=== PATIENT | female | born 1960 | race Caucasian/White ===

== ENCOUNTER 2021-02-09 06:21 | Inpatient (IN) | payer BC ==
[~2021-02-09] VITALS: Ht 162.6 cm; Wt 75.0 kg
[2021-02-09] VITALS (25 sets, daily range): BP systolic 97–122; BP diastolic 56–78
[2021-02-09] MEDS ORDERED: morphine 4 MG/ML inj SYRINge IV ONE ×2 (06:40→10:20)
[2021-02-09] MEDS ORDERED: ondansetron/PF 4mg/2ml inj IV ONE (06:40)
[2021-02-09] MEDS ORDERED: normal saline 1000ml 1,000 ML IV ONE (06:40)
[2021-02-09 07:27] LABS: BASOPHILS % (AUTO) 0.2 % (0-1); EOSINOPHILS % (AUTO) 0.1 % (0-6); HEMATOCRIT 41.9 % (35.0-45.0); LYMPHOCYTES # (AUTO) 0.5 X10'3 (1.1-4.8); LYMPHOCYTES % (AUTO) 6.2 % (21-51); MEAN CORPUSCULAR HEMOGLOBIN 29.2 PG (27.0-31.0); MEAN CORPUSCULAR HGB CONC 33.4 g/dL (33.0-36.5); MEAN CORPUSCULAR VOLUME 87.5 FL (78-98); MEAN PLATELET VOLUME 8.1 FL (7.4-10.4); MONOCYTES # (AUTO) 0.3 X10'3 (0-0.9); MONOCYTES % (AUTO) 3.6 % (2-12); NEUTROPHILS # (AUTO) 7.9 X10'3 (1.8-7.7); NEUTROPHILS % (AUTO) 89.9 % (42-75); PLATELET COUNT 283 X10'3 (140-440); RED BLOOD COUNT 4.79 X10'6 (4.20-5.60); RED CELL DISTRIBUTION WIDTH 13.5 % (11.5-14.5); WHITE BLOOD COUNT 8.8 X10'3 (4.5-11.0)
[2021-02-09 07:32] LABS: CLARITY,URINE CLEAR (Clear); COLOR,URINE YELLOW (Yellow); GLUCOSE, URINE NEGATIVE (Neg); KETONES,URINE NEGATIVE (Neg); LEUKOCYTE ESTERASE ,URINE NEGATIVE (Neg); NITRITES, URINE NEGATIVE (Neg); OCCULT BLOOD,URINE NEGATIVE (Neg); PROTEIN,URINE NEGATIVE (Neg); UROBILINOGEN,URINE 0.2 E.U/dL (0.2-1.0)
[2021-02-09 07:38] LABS: UA COLLECTION TYPE CLN CATCH MIDSTREAM
[2021-02-09 07:40] LABS: ALANINE AMINOTRANSFERASE 19 U/L (12-78); ALBUMIN 3.7 G/DL (3.4-5.0); ALBUMIN/GLOBULIN RATIO 0.9 (1.1-1.5); ALKALINE PHOSPHATASE 81 IU/L (46-116); ANION GAP 11 (8-16); ASPARTATE AMINO TRANSFERASE 16 U/L (10-37); BILIRUBIN,TOTAL 0.5 MG/DL (0.1-1.0); BLOOD UREA NITROGEN 18 MG/DL (7-18); BUN/CREATININE RATIO 29.5 (6.6-38.0); CALCIUM 9.1 MG/DL (8.5-10.1); CHLORIDE 107 MMOL/L (99-107); CREATININE 0.61 MG/DL (0.40-0.90); GLUCOSE 141 MG/DL (70-104); POTASSIUM 3.5 MMOL/L (3.5-5.1); SODIUM 143 MMOL/L (135-145); TOTAL CARBON DIOXIDE 24.9 MMOL/L (24-32); TOTAL PROTEIN 7.8 G/DL (6.4-8.2); eGFR > 90 ML/MIN
[2021-02-09] MEDS ORDERED: iohexol 300mg/ml 100ml inj. ONE (08:24)
[2021-02-09] MEDS ORDERED: ciprofloxacin lact 400MG/200ML 200 ML IV ONE (10:15)
[2021-02-09] MEDS ORDERED: metroNIDAZOLE-Flagyl 500mg/NS 100 ML IV ONE (10:15)
[2021-02-09] MEDS ORDERED: acetaminophen 325mg tablet PO ONE (10:20)
[2021-02-09] MEDS ORDERED: magnesium 2GM in 50ml NS 50 ML IV PRN (10:50)
[2021-02-09] MEDS ORDERED: HYDROcodone/acetaminophen 10/325mg tab PO PRN (10:50)
[2021-02-09] MEDS ORDERED: acetaminophen 325mg tablet PO PRN (10:50)
[2021-02-09] MEDS ORDERED: diphenhydrAMINE 25mg capsule PO PRN (10:50)
[2021-02-09] MEDS ORDERED: acetaminophen 650mg rectal suppository RC PRN (10:50)
[2021-02-09] MEDS ORDERED: potassium Cl 20 mEq SR tablet PO PRN (10:50)
[2021-02-09] MEDS ORDERED: bisacodyl 10mg suppository rectal RC PRN (10:50)
[2021-02-09] MEDS ORDERED: magnesium 4gm in 100ml NS 100 ML IV PRN (10:50)
[2021-02-09] MEDS ORDERED: magnesium Cl slow-release 64mg tablet PO PRN (10:50)
[2021-02-09] MEDS ORDERED: morphine 2 MG/ML inj. syringe IV PRN ×2 (10:50)
[2021-02-09] MEDS ORDERED: potassium Cl 40MEQ/1/2NS 520ml 520 ML IV PRN ×2 (10:50)
[2021-02-09] MEDS ORDERED: mag hydrox/Alum hydrox/simeth 30ml oral suspension PO PRN (10:50)
[2021-02-09] MEDS ORDERED: ondansetron/PF 4mg/2ml inj IV PRN (10:50)
[2021-02-09] MEDS ORDERED: HYDROcodone/acetaminophen 5mg/325mg tablet PO PRN (10:50)
[2021-02-09] MEDS ORDERED: fentaNYL/PF 50MCG/1 ML 2ML syringe ONE ×3 (11:02→12:48)
[2021-02-09] MEDS ORDERED: midazolam 1 mg/ML 2ml injection ONE ×2 (11:02→12:47)
[2021-02-09 11:27] LABS: HEMOGLOBIN A1C 5.7 % (4.5-6.2)
[2021-02-09] MEDS: dextrose 5%-normal saline 1,000 ML IV SCH ×2 (13:58→20:50)
[2021-02-09 14:03] LABS: PARTIAL THROMBOPLASTIN TIME 28 SECONDS (22-32)
--- NOTE | 2021-02-09 14:41 | NUR ---
relieving RN for break, pt is sleeping, antibiotic infusing via pump
--- NOTE | 2021-02-09 15:37 | NUR ---
received report, awaiting pt to room 4683j
[2021-02-09] MEDS ORDERED: OMEP-50 PO (16:50)
[2021-02-09] MEDS ORDERED: ACET-1025 PO (16:50)
[2021-02-09] MEDS ORDERED: LORA-835 PO (16:50)
[2021-02-09] MEDS: metroNIDAZOLE-Flagyl 500mg/NS 100 ML IV SCH (17:06)
[2021-02-09] MEDS: acetaminophen 325mg tablet PO PRN (17:13)
--- NOTE | 2021-02-09 18:32 | NUR ---
Patient in room [facility]TH[facility] 4012. I have received report from Jessi FLORES and had the opportunity to ask questions and assume patient care.
[2021-02-09] MEDS: K and/or MAG REPLACEMENT MC SCH (20:00)
[2021-02-09] MEDS: heparin, porcine 5000 units/ml vial SQ SCH (20:15)
[2021-02-09] MEDS: ciprofloxacin lact 400MG/200ML 200 ML IV SCH (20:15)
--- NOTE | 2021-02-10 02:38 | NUR ---
IS at pt's bedside will instruct on her on use once she is awake.
[2021-02-10] MEDS: dextrose 5%-normal saline 1,000 ML IV SCH ×2 (03:49→16:24)
[2021-02-10] MEDS: acetaminophen 325mg tablet PO PRN (04:49)
--- NOTE | 2021-02-10 05:00 | NUR ---
Educated patient on how to use the IS done
[2021-02-10 06:12] LABS: BASOPHILS % (AUTO) 0.3 % (0-1); EOSINOPHILS # (AUTO) 0.1 X10'3 (0-0.9); EOSINOPHILS % (AUTO) 1.7 % (0-6); HEMATOCRIT 36.6 % (35.0-45.0); HEMOGLOBIN 12.2 g/dl (12.0-16.0); LYMPHOCYTES # (AUTO) 1.2 X10'3 (1.1-4.8); LYMPHOCYTES % (AUTO) 30.8 % (21-51); MEAN CORPUSCULAR HEMOGLOBIN 29.3 PG (27.0-31.0); MEAN CORPUSCULAR HGB CONC 33.3 g/dL (33.0-36.5); MEAN CORPUSCULAR VOLUME 87.8 FL (78-98); MEAN PLATELET VOLUME 7.9 FL (7.4-10.4); MONOCYTES # (AUTO) 0.3 X10'3 (0-0.9); MONOCYTES % (AUTO) 7.7 % (2-12); NEUTROPHILS # (AUTO) 2.3 X10'3 (1.8-7.7); NEUTROPHILS % (AUTO) 59.5 % (42-75); PLATELET COUNT 242 X10'3 (140-440); RED BLOOD COUNT 4.18 X10'6 (4.20-5.60); RED CELL DISTRIBUTION WIDTH 13.6 % (11.5-14.5); WHITE BLOOD COUNT 3.8 X10'3 (4.5-11.0)
[2021-02-10 06:27] LABS: ALANINE AMINOTRANSFERASE 17 U/L (12-78); ALBUMIN 2.9 G/DL (3.4-5.0); ALBUMIN/GLOBULIN RATIO 0.9 (1.1-1.5); ALKALINE PHOSPHATASE 64 IU/L (46-116); ANION GAP 7 (8-16); ASPARTATE AMINO TRANSFERASE 14 U/L (10-37); BILIRUBIN,TOTAL 0.5 MG/DL (0.1-1.0); BLOOD UREA NITROGEN 10 MG/DL (7-18); BUN/CREATININE RATIO 14.1 (6.6-38.0); CALCIUM 7.9 MG/DL (8.5-10.1); CHLORIDE 109 MMOL/L (99-107); CHOL/HDL RATIO 2.5 (0.00-4.99); CHOLESTEROL 127 MG/DL (0-200); CREATININE 0.71 MG/DL (0.40-0.90); GLUCOSE 131 MG/DL (70-104); HDL CHOLESTEROL 50 MG/DL (35-60); LDL CHOLESTEROL 61 MG/DL (50-100); MAGNESIUM 2.1 MG/DL (1.5-2.4); PHOSPHORUS 2.7 MG/DL (2.3-4.5); POTASSIUM 3.2 MMOL/L (3.5-5.1); SODIUM 144 MMOL/L (135-145); TOTAL CARBON DIOXIDE 27.6 MMOL/L (24-32); TOTAL PROTEIN 6.2 G/DL (6.4-8.2); TRIGLYCERIDES 79 MG/DL (20-135); eGFR 84 ML/MIN
--- NOTE | 2021-02-10 06:33 | NUR ---
Problems reprioritized. Patient report given, questions answered & plan of care reviewed with Brandon FLORES.
[2021-02-10 07:01] VITALS: BP 116/58
[2021-02-10] MEDS: metroNIDAZOLE-Flagyl 500mg/NS 100 ML IV SCH ×3 (07:30→16:21)
[2021-02-10] MEDS: K and/or MAG REPLACEMENT MC SCH ×2 (07:58→20:00)
[2021-02-10] MEDS: pantoprazole 40 MG vial IV SCH (07:59)
[2021-02-10] MEDS: potassium Cl 20 mEq SR tablet PO PRN ×3 (07:59→16:21)
[2021-02-10] MEDS: heparin, porcine 5000 units/ml vial SQ SCH ×2 (07:59→20:30)
[2021-02-10] MEDS: ciprofloxacin lact 400MG/200ML 200 ML IV SCH ×2 (09:10→20:29)
[2021-02-10 10:01] VITALS: BP 113/61
[2021-02-10 18:00] VITALS: BP 130/69
--- NOTE | 2021-02-10 18:14 | NUR ---
Report from Brandon FLORES
[2021-02-10 22:00] VITALS: BP 126/70
[2021-02-11] MEDS: metroNIDAZOLE-Flagyl 500mg/NS 100 ML IV SCH ×3 (01:27→16:49)
[2021-02-11] MEDS: dextrose 5%-normal saline 1,000 ML IV SCH ×3 (01:33→20:36)
--- NOTE | 2021-02-11 06:20 | NUR ---
Patient in room [facility]TH[facility] 4012. I have received report from Fern FLORES and had the opportunity to ask questions and assume patient care.
--- NOTE | 2021-02-11 06:51 | NUR ---
REPORT TO CJ FLORES
[2021-02-11 07:00] VITALS: BP 130/69
[2021-02-11 07:42] LABS: BASOPHILS % (AUTO) 0.6 % (0-1); EOSINOPHILS # (AUTO) 0.1 X10'3 (0-0.9); EOSINOPHILS % (AUTO) 2.6 % (0-6); HEMATOCRIT 35.8 % (35.0-45.0); HEMOGLOBIN 12.1 g/dl (12.0-16.0); LYMPHOCYTES # (AUTO) 1.1 X10'3 (1.1-4.8); LYMPHOCYTES % (AUTO) 37.3 % (21-51); MEAN CORPUSCULAR HEMOGLOBIN 29.9 PG (27.0-31.0); MEAN CORPUSCULAR VOLUME 87.9 FL (78-98); MEAN PLATELET VOLUME 8.1 FL (7.4-10.4); MONOCYTES # (AUTO) 0.3 X10'3 (0-0.9); MONOCYTES % (AUTO) 9.6 % (2-12); NEUTROPHILS # (AUTO) 1.5 X10'3 (1.8-7.7); NEUTROPHILS % (AUTO) 49.9 % (42-75); PLATELET COUNT 238 X10'3 (140-440); RED BLOOD COUNT 4.07 X10'6 (4.20-5.60); RED CELL DISTRIBUTION WIDTH 13.1 % (11.5-14.5)
[2021-02-11] MEDS: K and/or MAG REPLACEMENT MC SCH ×2 (08:00→20:00)
[2021-02-11 08:21] LABS: ALANINE AMINOTRANSFERASE 16 U/L (12-78); ALBUMIN/GLOBULIN RATIO 0.9 (1.1-1.5); ALKALINE PHOSPHATASE 66 IU/L (46-116); ANION GAP 8 (8-16); ASPARTATE AMINO TRANSFERASE 14 U/L (10-37); BILIRUBIN,TOTAL 0.4 MG/DL (0.1-1.0); BLOOD UREA NITROGEN 4 MG/DL (7-18); BUN/CREATININE RATIO 6.6 (6.6-38.0); CALCIUM 8.7 MG/DL (8.5-10.1); CHLORIDE 112 MMOL/L (99-107); CREATININE 0.61 MG/DL (0.40-0.90); GLUCOSE 128 MG/DL (70-104); MAGNESIUM 2.1 MG/DL (1.5-2.4); PHOSPHORUS 2.3 MG/DL (2.3-4.5); SODIUM 147 MMOL/L (135-145); TOTAL CARBON DIOXIDE 27.1 MMOL/L (24-32); TOTAL PROTEIN 6.4 G/DL (6.4-8.2); eGFR > 90 ML/MIN
--- NOTE | 2021-02-11 09:14 | NUR ---
Patient in room ORTH[facility] 4012. I have received report from MARK Chavira and had the opportunity to ask questions and assume patient care.
[2021-02-11 09:28] LABS: PLATELET ESTIMATE NORMAL; TOTAL CELLS COUNTED 100
[2021-02-11] MEDS: pantoprazole 40 MG vial IV SCH (10:24)
[2021-02-11] MEDS: ciprofloxacin lact 400MG/200ML 200 ML IV SCH ×2 (10:24→19:20)
[2021-02-11] MEDS: heparin, porcine 5000 units/ml vial SQ SCH ×2 (10:26→19:20)
[2021-02-11 11:00] VITALS: BP 134/75
[2021-02-11 18:00] VITALS: BP 131/61
--- NOTE | 2021-02-11 18:13 | NUR ---
Problems reprioritized. Patient report given, questions answered & plan of care reviewed with Aby FLORES.
[2021-02-11] MEDS: magnesium hydroxide 30ml (MOM) UD suspension PO PRN (19:20)
[2021-02-11 22:00] VITALS: BP 138/73
[2021-02-12] MEDS: metroNIDAZOLE-Flagyl 500mg/NS 100 ML IV SCH ×3 (00:16→16:54)
[2021-02-12 06:00] VITALS: BP 117/72
--- NOTE | 2021-02-12 06:34 | NUR ---
Problems reprioritized. Patient report given, questions answered & plan of care reviewed with MARK Walden.
[2021-02-12 07:39] LABS: BASOPHILS % (AUTO) 0.5 % (0-1); EOSINOPHILS # (AUTO) 0.1 X10'3 (0-0.9); EOSINOPHILS % (AUTO) 2.5 % (0-6); HEMATOCRIT 37.3 % (35.0-45.0); HEMOGLOBIN 12.5 g/dl (12.0-16.0); LYMPHOCYTES # (AUTO) 1.2 X10'3 (1.1-4.8); MEAN CORPUSCULAR HEMOGLOBIN 29.4 PG (27.0-31.0); MEAN CORPUSCULAR HGB CONC 33.5 g/dL (33.0-36.5); MEAN CORPUSCULAR VOLUME 87.8 FL (78-98); MEAN PLATELET VOLUME 8.3 FL (7.4-10.4); MONOCYTES # (AUTO) 0.3 X10'3 (0-0.9); MONOCYTES % (AUTO) 11.3 % (2-12); NEUTROPHILS # (AUTO) 1.2 X10'3 (1.8-7.7); NEUTROPHILS % (AUTO) 43.7 % (42-75); PLATELET COUNT 222 X10'3 (140-440); RED BLOOD COUNT 4.24 X10'6 (4.20-5.60); RED CELL DISTRIBUTION WIDTH 13.4 % (11.5-14.5); WHITE BLOOD COUNT 2.8 X10'3 (4.5-11.0)
[2021-02-12 07:45] LABS: ALANINE AMINOTRANSFERASE 38 U/L (12-78); ALBUMIN/GLOBULIN RATIO 0.9 (1.1-1.5); ALKALINE PHOSPHATASE 66 IU/L (46-116); ANION GAP 7 (8-16); ASPARTATE AMINO TRANSFERASE 43 U/L (10-37); BILIRUBIN,TOTAL 0.4 MG/DL (0.1-1.0); BLOOD UREA NITROGEN 4 MG/DL (7-18); BUN/CREATININE RATIO 6.6 (6.6-38.0); CALCIUM 8.7 MG/DL (8.5-10.1); CHLORIDE 112 MMOL/L (99-107); CREATININE 0.61 MG/DL (0.40-0.90); GLUCOSE 122 MG/DL (70-104); MAGNESIUM 2.1 MG/DL (1.5-2.4); PHOSPHORUS 2.7 MG/DL (2.3-4.5); POTASSIUM 3.9 MMOL/L (3.5-5.1); SODIUM 148 MMOL/L (135-145); TOTAL CARBON DIOXIDE 29.1 MMOL/L (24-32); TOTAL PROTEIN 6.4 G/DL (6.4-8.2); eGFR > 90 ML/MIN
[2021-02-12] MEDS: K and/or MAG REPLACEMENT MC SCH ×2 (08:00→20:00)
--- NOTE | 2021-02-12 08:45 | NUR ---
PAGER ID: [phone] MESSAGE: [id number] KARIN request advance to full liquids? LESLEY [phone]
[2021-02-12] MEDS: pantoprazole 40mg Tablet.DR PO SCH (09:14)
[2021-02-12] MEDS: heparin, porcine 5000 units/ml vial SQ SCH ×2 (09:18→21:04)
[2021-02-12] MEDS: dextrose 5%-normal saline 1,000 ML IV SCH (09:21)
[2021-02-12 09:26] LABS: TOTAL CELLS COUNTED 100
[2021-02-12 09:27] LABS: PLATELET ESTIMATE NORMAL
[2021-02-12 10:00] VITALS: BP 111/62
[2021-02-12] MEDS: ciprofloxacin lact 400MG/200ML 200 ML IV SCH ×2 (12:48→21:00)
[2021-02-12 18:00] VITALS: BP 124/54
[2021-02-12 22:00] VITALS: BP 102/52
[2021-02-13] MEDS: metroNIDAZOLE-Flagyl 500mg/NS 100 ML IV SCH ×4 (00:12→23:43)
[2021-02-13 06:00] VITALS: BP 111/60
--- NOTE | 2021-02-13 06:19 | NUR ---
Problems reprioritized. Patient report given, questions answered & plan of care reviewed with MARK SUTTON.
[2021-02-13] MEDS: pantoprazole 40mg Tablet.DR PO SCH (07:12)
[2021-02-13] MEDS: heparin, porcine 5000 units/ml vial SQ SCH ×2 (07:14→19:16)
[2021-02-13 07:50] LABS: BASOPHILS % (AUTO) 0.5 % (0-1); EOSINOPHILS # (AUTO) 0.1 X10'3 (0-0.9); EOSINOPHILS % (AUTO) 3.5 % (0-6); HEMATOCRIT 41.7 % (35.0-45.0); HEMOGLOBIN 13.9 g/dl (12.0-16.0); LYMPHOCYTES # (AUTO) 1.1 X10'3 (1.1-4.8); LYMPHOCYTES % (AUTO) 35.4 % (21-51); MEAN CORPUSCULAR HEMOGLOBIN 29.2 PG (27.0-31.0); MEAN CORPUSCULAR HGB CONC 33.4 g/dL (33.0-36.5); MEAN CORPUSCULAR VOLUME 87.4 FL (78-98); MEAN PLATELET VOLUME 7.9 FL (7.4-10.4); MONOCYTES # (AUTO) 0.3 X10'3 (0-0.9); MONOCYTES % (AUTO) 9.4 % (2-12); NEUTROPHILS # (AUTO) 1.7 X10'3 (1.8-7.7); NEUTROPHILS % (AUTO) 51.2 % (42-75); PLATELET COUNT 245 X10'3 (140-440); RED BLOOD COUNT 4.77 X10'6 (4.20-5.60); RED CELL DISTRIBUTION WIDTH 13.6 % (11.5-14.5); WHITE BLOOD COUNT 3.2 X10'3 (4.5-11.0)
[2021-02-13] MEDS: K and/or MAG REPLACEMENT MC SCH ×2 (08:00→20:00)
[2021-02-13 08:14] LABS: ALANINE AMINOTRANSFERASE 91 U/L (12-78); ALBUMIN 3.4 G/DL (3.4-5.0); ALBUMIN/GLOBULIN RATIO 0.9 (1.1-1.5); ALKALINE PHOSPHATASE 76 IU/L (46-116); ANION GAP 10 (8-16); ASPARTATE AMINO TRANSFERASE 116 U/L (10-37); BILIRUBIN,TOTAL 0.6 MG/DL (0.1-1.0); BLOOD UREA NITROGEN 7 MG/DL (7-18); BUN/CREATININE RATIO 10.3 (6.6-38.0); CALCIUM 9.1 MG/DL (8.5-10.1); CHLORIDE 108 MMOL/L (99-107); CREATININE 0.68 MG/DL (0.40-0.90); GLUCOSE 113 MG/DL (70-104); MAGNESIUM 2.3 MG/DL (1.5-2.4); PHOSPHORUS 3.3 MG/DL (2.3-4.5); POTASSIUM 3.7 MMOL/L (3.5-5.1); SODIUM 145 MMOL/L (135-145); TOTAL CARBON DIOXIDE 26.9 MMOL/L (24-32); TOTAL PROTEIN 7.1 G/DL (6.4-8.2); eGFR 88 ML/MIN
[2021-02-13 10:00] VITALS: BP 92/63
[2021-02-13] MEDS: ciprofloxacin lact 400MG/200ML 200 ML IV SCH ×2 (10:35→19:11)
--- NOTE | 2021-02-13 11:36 | NUR ---
acting as clinical nursing program coordinator, i reviewed student nurse documentation
[2021-02-13 18:00] VITALS: BP 123/68
[2021-02-13] MEDS: magnesium hydroxide 30ml (MOM) UD suspension PO PRN (19:11)
[2021-02-13 22:00] VITALS: BP 116/69
[2021-02-14 06:00] VITALS: BP 102/46
[2021-02-14 07:06] LABS: BASOPHILS % (AUTO) 0.5 % (0-1); EOSINOPHILS # (AUTO) 0.1 X10'3 (0-0.9); HEMATOCRIT 37.4 % (35.0-45.0); HEMOGLOBIN 12.6 g/dl (12.0-16.0); MEAN CORPUSCULAR HEMOGLOBIN 29.8 PG (27.0-31.0); MEAN CORPUSCULAR HGB CONC 33.7 g/dL (33.0-36.5); MEAN CORPUSCULAR VOLUME 88.5 FL (78-98); MEAN PLATELET VOLUME 8.1 FL (7.4-10.4); MONOCYTES # (AUTO) 0.4 X10'3 (0-0.9); MONOCYTES % (AUTO) 10.2 % (2-12); NEUTROPHILS # (AUTO) 2.1 X10'3 (1.8-7.7); NEUTROPHILS % (AUTO) 58.3 % (42-75); PLATELET COUNT 227 X10'3 (140-440); RED BLOOD COUNT 4.23 X10'6 (4.20-5.60); RED CELL DISTRIBUTION WIDTH 13.8 % (11.5-14.5); WHITE BLOOD COUNT 3.6 X10'3 (4.5-11.0)
[2021-02-14 07:25] LABS: ALANINE AMINOTRANSFERASE 92 U/L (12-78); ALBUMIN 3.1 G/DL (3.4-5.0); ALBUMIN/GLOBULIN RATIO 0.9 (1.1-1.5); ALKALINE PHOSPHATASE 64 IU/L (46-116); ANION GAP 7 (8-16); ASPARTATE AMINO TRANSFERASE 91 U/L (10-37); BILIRUBIN,TOTAL 0.3 MG/DL (0.1-1.0); BLOOD UREA NITROGEN 16 MG/DL (7-18); BUN/CREATININE RATIO 21.9 (6.6-38.0); CALCIUM 8.8 MG/DL (8.5-10.1); CHLORIDE 109 MMOL/L (99-107); CREATININE 0.73 MG/DL (0.40-0.90); GLUCOSE 118 MG/DL (70-104); MAGNESIUM 2.3 MG/DL (1.5-2.4); PHOSPHORUS 3.2 MG/DL (2.3-4.5); POTASSIUM 3.7 MMOL/L (3.5-5.1); SODIUM 144 MMOL/L (135-145); TOTAL CARBON DIOXIDE 28.4 MMOL/L (24-32); TOTAL PROTEIN 6.4 G/DL (6.4-8.2); eGFR 81 ML/MIN
[2021-02-14] MEDS: heparin, porcine 5000 units/ml vial SQ SCH (08:00)
[2021-02-14] MEDS: metroNIDAZOLE-Flagyl 500mg/NS 100 ML IV SCH (09:48)
[2021-02-14] MEDS: pantoprazole 40mg Tablet.DR PO SCH (09:48)
[2021-02-14] MEDS ORDERED: CIPR-173 PO (10:29)
[2021-02-14] MEDS ORDERED: METR-159 PO (10:29)
[2021-02-14] MEDS: ciprofloxacin lact 400MG/200ML 200 ML IV SCH (11:09)
--- NOTE | 2021-02-14 12:27 | NUR ---
MARK TC: Pt admit DX acute diverticulitis on low-residue diet requesting low-fiber MNT. Pt seen by RD for written/verbal low-fiber diet ed w/ RD contact information provided. RD reviewed cooking strategies, low fiber food options, and transitioning strategies for future long-term high fiber diet. 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 PT reports no further questions/concerns at this time. RD encouraged pt to contact dietitian's office if further questions. Addendum: 02/14/21 at [address] Amended: Links added.
== END 2021-02-14 13:23 | disposition home or self-care (01) | DRG 392 ==
LOC: ER 06:22 → ED HOLD 10:50 → ORTHO 4S 15:56
PROVIDERS: ADMIT Family Medicine; ATTEND Family Medicine
PROC: 0D9N3ZZ Drainage of Sigmoid Colon, Percutaneous Approach (ICD-10-PCS; principal; 2021-02-09)
PROC: BW211ZZ Computerized Tomography (CT Scan) of Abdomen and Pelvis using Low Osmolar Contrast (ICD-10-PCS; 2021-02-09)
DX: K57.20 Diverticulitis of large intestine with perforation and abscess without bleeding (principal); K21.9 Gastro-esophageal reflux disease without esophagitis; Z80.3 Family history of malignant neoplasm of breast; Z87.891 Personal history of nicotine dependence; Z90.710 Acquired absence of both cervix and uterus; Z88.0 Allergy status to penicillin; Z88.2 Allergy status to sulfonamides; Z88.8 Allergy status to other drugs, medicaments and biological substances
CPT/HCPCS: 36415; 49406; 74177; 80053; 80061; 81003; 83036; 83605; 83735; 84100; 85007; 85025; 85610; 85730; 86885; 86900; 86901; 87040; 87070; 87075; 87081; 87102; 96374; 96375; 99152; 99153; 99285; C9113; G0378; J0744; J1644; J2250; J2270; J2405; J3010; J3490; J7030; J7042; Q9967

== ENCOUNTER 2021-03-02 13:38 | Emergency (ER) | payer BC ==
[~2021-03-02] VITALS: Ht 162.6 cm; Wt 74.2 kg
[~2021-03-02 13:38] MED LIST: ACET-1025 PO; LORA-835 PO; OMEP-50 PO
[2021-03-02 14:23] LABS: BASOPHILS % (AUTO) 0.2 % (0-1); EOSINOPHILS % (AUTO) 0.3 % (0-6); HEMATOCRIT 41.2 % (35.0-45.0); HEMOGLOBIN 13.6 g/dl (12.0-16.0); LYMPHOCYTES # (AUTO) 0.7 X10'3 (1.1-4.8); LYMPHOCYTES % (AUTO) 12.9 % (21-51); MEAN CORPUSCULAR HEMOGLOBIN 29.4 PG (27.0-31.0); MEAN CORPUSCULAR VOLUME 89.1 FL (78-98); MONOCYTES # (AUTO) 0.3 X10'3 (0-0.9); MONOCYTES % (AUTO) 4.8 % (2-12); NEUTROPHILS # (AUTO) 4.6 X10'3 (1.8-7.7); NEUTROPHILS % (AUTO) 81.8 % (42-75); PLATELET COUNT 239 X10'3 (140-440); RED BLOOD COUNT 4.62 X10'6 (4.20-5.60); RED CELL DISTRIBUTION WIDTH 14.8 % (11.5-14.5); WHITE BLOOD COUNT 5.6 X10'3 (4.5-11.0)
[2021-03-02 14:38] LABS: ALANINE AMINOTRANSFERASE 28 U/L (12-78); ALBUMIN 3.8 G/DL (3.4-5.0); ALKALINE PHOSPHATASE 78 IU/L (46-116); ANION GAP 10 (8-16); ASPARTATE AMINO TRANSFERASE 23 U/L (10-37); BILIRUBIN,TOTAL 0.5 MG/DL (0.1-1.0); BLOOD UREA NITROGEN 12 MG/DL (7-18); BUN/CREATININE RATIO 20.7 (6.6-38.0); CALCIUM 9.2 MG/DL (8.5-10.1); CHLORIDE 103 MMOL/L (99-107); CREATININE 0.58 MG/DL (0.40-0.90); GLUCOSE 114 MG/DL (70-104); LIPASE 68 U/L (73-393); SODIUM 140 MMOL/L (135-145); TOTAL CARBON DIOXIDE 26.6 MMOL/L (24-32); TOTAL PROTEIN 7.6 G/DL (6.4-8.2); eGFR > 90 ML/MIN
[2021-03-02] MEDS ORDERED: normal saline 1000ML IV soln IVB ONE (14:50)
[2021-03-02 14:54] LABS: CLARITY,URINE CLEAR (Clear); COLOR,URINE YELLOW (Yellow); GLUCOSE, URINE NEGATIVE (Neg); KETONES,URINE TRACE mg/dl (Neg); LEUKOCYTE ESTERASE ,URINE NEGATIVE (Neg); NITRITES, URINE NEGATIVE (Neg); OCCULT BLOOD,URINE NEGATIVE (Neg); PH,URINE 6.5 (4.8-8.0); PROTEIN,URINE NEGATIVE (Neg)
[2021-03-02 15:00] LABS: UA COLLECTION TYPE CLN CATCH MIDSTREAM
[2021-03-02] MEDS ORDERED: iohexol 300mg/ml 100ml inj. ONE (15:00)
[2021-03-02] MEDS ORDERED: ondansetron/PF 4mg/2ml inj IV ONE (16:15)
[2021-03-02] MEDS ORDERED: morphine 4 MG/ML inj SYRINge IV ONE (16:15)
[2021-03-02] MEDS ORDERED: METR500T PO (17:36)
[2021-03-02] MEDS ORDERED: CIPR-259 PO (17:36)
[2021-03-02 17:53] VITALS: BP 165/90
== END 2021-03-02 17:54 | disposition home or self-care (01) ==
LOC: ER 13:38
DX: K57.92 Diverticulitis of intestine, part unspecified, without perforation or abscess without bleeding (principal); R10.32 Left lower quadrant pain; Z90.710 Acquired absence of both cervix and uterus; Z98.890 Other specified postprocedural states; Z88.0 Allergy status to penicillin; Z88.6 Allergy status to analgesic agent; Z88.1 Allergy status to other antibiotic agents; Z88.8 Allergy status to other drugs, medicaments and biological substances; Z79.2 Long term (current) use of antibiotics; Z79.899 Other long term (current) drug therapy
CPT/HCPCS: 36415; 74177; 80053; 81003; 83690; 85025; 96361; 96374; 96375; 99285; J2270; J2405; J7030; Q9967

== ENCOUNTER 2021-03-31 15:29 | Emergency (ER) | payer BC ==
[~2021-03-31] VITALS: Ht 162.6 cm; Wt 77.3 kg
[2021-03-31 16:41] LABS: BASOPHILS % (AUTO) 0.1 % (0-1); EOSINOPHILS % (AUTO) 0.1 % (0-6); HEMATOCRIT 41.2 % (35.0-45.0); LYMPHOCYTES # (AUTO) 0.3 X10'3 (1.1-4.8); MEAN CORPUSCULAR HEMOGLOBIN 30.2 PG (27.0-31.0); MEAN CORPUSCULAR HGB CONC 34.1 g/dL (33.0-36.5); MEAN CORPUSCULAR VOLUME 88.6 FL (78-98); MEAN PLATELET VOLUME 7.9 FL (7.4-10.4); MONOCYTES # (AUTO) 0.1 X10'3 (0-0.9); MONOCYTES % (AUTO) 1.9 % (2-12); NEUTROPHILS # (AUTO) 6.6 X10'3 (1.8-7.7); NEUTROPHILS % (AUTO) 93.9 % (42-75); PLATELET COUNT 198 X10'3 (140-440); RED BLOOD COUNT 4.65 X10'6 (4.20-5.60); RED CELL DISTRIBUTION WIDTH 14.4 % (11.5-14.5)
[2021-03-31 16:57] LABS: ALANINE AMINOTRANSFERASE 23 U/L (12-78); ALBUMIN 3.9 G/DL (3.4-5.0); ALBUMIN/GLOBULIN RATIO 1.1 (1.1-1.5); ALKALINE PHOSPHATASE 87 IU/L (46-116); ANION GAP 9 (8-16); ASPARTATE AMINO TRANSFERASE 22 U/L (10-37); BILIRUBIN,TOTAL 1.1 MG/DL (0.1-1.0); BLOOD UREA NITROGEN 11 MG/DL (7-18); BUN/CREATININE RATIO 15.3 (6.6-38.0); CALCIUM 8.8 MG/DL (8.5-10.1); CHLORIDE 103 MMOL/L (99-107); CREATININE 0.72 MG/DL (0.40-0.90); GLUCOSE 125 MG/DL (70-104); LIPASE 56 U/L (73-393); POTASSIUM 3.4 MMOL/L (3.5-5.1); SODIUM 138 MMOL/L (135-145); TOTAL CARBON DIOXIDE 26.4 MMOL/L (24-32); TOTAL PROTEIN 7.6 G/DL (6.4-8.2); eGFR 82 ML/MIN
[2021-03-31 17:02] LABS: CLARITY,URINE CLEAR (Clear); COLOR,URINE YELLOW (Yellow); GLUCOSE, URINE NEGATIVE (Neg); KETONES,URINE 15 mg/dl (Neg); LEUKOCYTE ESTERASE ,URINE NEGATIVE (Neg); NITRITES, URINE NEGATIVE (Neg); OCCULT BLOOD,URINE NEGATIVE (Neg); PH,URINE 6.5 (4.8-8.0); PROTEIN,URINE NEGATIVE (Neg); UROBILINOGEN,URINE 0.2 E.U/dL (0.2-1.0)
[2021-03-31 17:03] LABS: UA COLLECTION TYPE CLN CATCH MIDSTREAM
[2021-03-31] MEDS ORDERED: morphine 4 MG/ML inj SYRINge IV ONE (17:45)
[2021-03-31] MEDS ORDERED: ondansetron/PF 4mg/2ml inj IV ONE (17:45)
[2021-03-31] MEDS ORDERED: normal saline 1000ml 1,000 ML IV ONE (17:45)
[2021-03-31] MEDS ORDERED: iohexol 300mg/ml 100ml inj. ONE (17:47)
[2021-03-31] MEDS ORDERED: ciprofloxacin 250mg tablet PO ONE (19:35)
[2021-03-31] MEDS ORDERED: metroNIDAZOLE 500mg tablet PO ONE (19:35)
[2021-03-31] MEDS ORDERED: CIPR-202 PO (19:40)
[2021-03-31 20:02] VITALS: BP 106/77
== END 2021-03-31 20:03 | disposition home or self-care (01) ==
LOC: ER 15:31
DX: R11.0 Nausea (principal); K59.00 Constipation, unspecified; K57.20 Diverticulitis of large intestine with perforation and abscess without bleeding; R10.32 Left lower quadrant pain; R19.7 Diarrhea, unspecified; R50.9 Fever, unspecified; Z90.710 Acquired absence of both cervix and uterus; Z88.0 Allergy status to penicillin; Z88.6 Allergy status to analgesic agent; Z88.1 Allergy status to other antibiotic agents; Z88.8 Allergy status to other drugs, medicaments and biological substances; Z79.2 Long term (current) use of antibiotics; Z79.899 Other long term (current) drug therapy
CPT/HCPCS: 36415; 74177; 80053; 81003; 83690; 85025; 93005; 96361; 96374; 96375; 99285; J2270; J2405; J7030; Q9967; J3490

== ENCOUNTER 2021-06-14 07:30 | Inpatient (IN) | payer BC ==
[2021-06-07 14:43] LABS: BASOPHILS % (AUTO) 0.2 % (0-1); EOSINOPHILS % (AUTO) 0.5 % (0-6); LYMPHOCYTES % (AUTO) 14.8 % (21-51); MEAN CORPUSCULAR HEMOGLOBIN 29.9 PG (27.0-31.0); MEAN CORPUSCULAR HGB CONC 34.1 g/dL (33.0-36.5); MEAN CORPUSCULAR VOLUME 87.6 FL (78-98); MEAN PLATELET VOLUME 7.6 FL (7.4-10.4); MONOCYTES # (AUTO) 0.5 X10'3 (0-0.9); NEUTROPHILS % (AUTO) 77.5 % (42-75); PRE OP HEMATOCRIT 40.7 % (35.0-45.0); PRE OP HEMOGLOBIN 13.9 g/dL (12.0-16.0); PRE OP PLATELET COUNT 271 X10'3 (140-440); RED BLOOD COUNT 4.65 X10'6 (4.20-5.60); RED CELL DISTRIBUTION WIDTH 13.9 % (11.5-14.5)
[2021-06-07 14:44] LABS: CLARITY,URINE CLEAR (Clear); COLOR,URINE YELLOW (Yellow); GLUCOSE, URINE NEGATIVE (Neg); KETONES,URINE NEGATIVE (Neg); LEUKOCYTE ESTERASE ,URINE TRACE (Neg); NITRITES, URINE NEGATIVE (Neg); OCCULT BLOOD,URINE NEGATIVE (Neg); PH,URINE 5.5 (4.8-8.0); PROTEIN,URINE NEGATIVE (Neg); UROBILINOGEN,URINE 0.2 E.U/dL (0.2-1.0)
[2021-06-07 14:45] LABS: UA COLLECTION TYPE CLN CATCH MIDSTREAM
[2021-06-07 14:57] LABS: ALBUMIN 3.9 G/DL (3.4-5.0); ALBUMIN/GLOBULIN RATIO 1.1 (1.1-1.5); ALKALINE PHOSPHATASE 90 IU/L (46-116); BLOOD UREA NITROGEN 8 MG/DL (7-18); BUN/CREATININE RATIO 10.8 (6.6-38.0); CALCIUM 8.7 MG/DL (8.5-10.1); CHLORIDE 104 MMOL/L (99-107); CREATININE 0.74 MG/DL (0.40-0.90); PRE OP ALT 26 U/L (30-65); PRE OP ANION GAP 8 (8-16); PRE OP AST 17 U/L (10-37); PRE OP BILIRUB, TOTAL 0.6 MG/DL (0.0-1.0); PRE OP GLUCOSE 107 MG/DL (70-104); PRE OP POTASSIUM 3.6 MMOL/L (3.4-5.1); PRE OP SODIUM 142 MMOL/L (135-145); TOTAL CARBON DIOXIDE 30.4 MMOL/L (24-32); TOTAL PROTEIN 7.6 G/DL (6.4-8.2); eGFR 80 ML/MIN
[2021-06-07 15:10] LABS: HYALINE CASTS 0-3 /LPF (NEGATIVE); MUCUS STRANDS MODERATE /LPF (Neg); SQUAMOUS EPITHELIAL CELL,UR FEW /LPF (FEW)
[2021-06-07 15:11] LABS: BACTERIA,URINE 1+ /HPF (Neg); RBC,URINE 0-2 /HPF (0-2); WBC,URINE 0-4 /HPF (0-4)
[~2021-06-14] VITALS: Ht 256.5 cm; Wt 66.9 kg
[~2021-06-14 07:30] MED LIST changes: -ACET-1025 PO; +CALC-336 PO; +DIGESTZEN; +LACT1CAP65 PO; -LORA-835 PO
[2021-06-20] MEDS ORDERED: KEN0.1O TP (10:43)
[2021-06-21] VITALS (29 sets, daily range): BP systolic 93–174; BP diastolic 60–138
[2021-06-21] MEDS ORDERED: ringers solution, lacted 1,000 ML IV SCH ×2 (05:00→14:10)
[2021-06-21] MEDS ORDERED: famotidine 20mg tablet PO ONE (05:30)
[2021-06-21] MEDS ORDERED: ceFOXitin 2GM-NS 100mL ADDvant 100 ML IV ONE (05:30)
[2021-06-21] MEDS ORDERED: BUPIVAcaine/PF 2.5mg/ml (0.25%) 10ml vial ONE (11:47)
[2021-06-21] MEDS ORDERED: BUPIVACAINE liposomal/PF 13.3 MG/ML vial IM ONE (11:48)
[2021-06-21] MEDS ORDERED: sevoflurane 250ml liquid IH ONE (12:40)
[2021-06-21] MEDS ORDERED: phenylephrine 10mg/ml inj. ONE (12:40)
[2021-06-21] MEDS ORDERED: dexamethasone sod phosphate 10mg/ml inj ONE (12:40)
[2021-06-21] MEDS ORDERED: fentaNYL/PF 50MCG/1 ML 2ML syringe ONE (12:49)
[2021-06-21] MEDS ORDERED: midazolam 1 mg/ML 2ml injection ONE (12:49)
[2021-06-21] MEDS ORDERED: ondansetron/PF 4mg/2ml inj ONE (13:35)
[2021-06-21] MEDS ORDERED: LIDOcaine 2% (20mg/ml) 5ml vial ONE (13:36)
[2021-06-21] MEDS ORDERED: rocuronium 10mg/ml inj IV ONE (13:36)
[2021-06-21] MEDS ORDERED: propofol inj 20 ML IV ONE (13:36)
[2021-06-21] MEDS ORDERED: ondansetron/PF 4mg/2ml inj IV PRN (14:10)
[2021-06-21] MEDS ORDERED: morphine 2 MG/ML inj. syringe IV PRN (14:10)
[2021-06-21] MEDS ORDERED: fentaNYL/PF 50MCG/1 ML 2ML syringe IV PRN ×2 (14:10)
[2021-06-21] MEDS ORDERED: hydrALAZINE 20mg/ml inj. IV PRN (14:10)
[2021-06-21] MEDS ORDERED: labetalol 20mg/4ml (5mg/ml) syringe IV ONE (14:15)
[2021-06-21] MEDS ORDERED: glycopyrrolate 0.2mg/ml inj ONE (14:15)
[2021-06-21] MEDS ORDERED: neostigmine methylsulfate 1 MG/ML 10ml vial ONE (14:35)
--- NOTE | 2021-06-21 15:00 | NUR ---
Received from OR via BED, accompanied by Anesthesiologist DR SCRUGGS and report given by Anesthesiologist AND MONOTYPER. PT VERY DROWSY, NO S/S OF DISTRESS/DISCOMFORT. ABDOMEN W/2 LAP SITES W/SURGICAL TAPE COVERING CDI, SMALL ABDOMINAL INCISION W/SURGICAL TAPE COVERING W/SCANT AMT OF DRAINAGE ON TAPE, SUPERIOR SIDE OF INCISION W/SOFT SWELLING NOTED, WILL MONITOR. ESQUEDA CATHETER TO GRAVITY DRAINAGE W/HEMATURIA GELY/PINK IN COLOR. BP ELEVATED, LABETALOL GIVEN PER MD ORDERS. Addendum: 06/21/21 at 1531 by Jillian Conklin RN Amended: Links added.
[2021-06-21] MEDS: labetalol 20mg/4ml (5mg/ml) syringe IV PRN ×3 (15:06→15:32)
[2021-06-21] MEDS: morphine 4 MG/ML inj SYRINge IV PRN ×3 (15:31→16:03)
--- NOTE | 2021-06-21 16:00 | NUR ---
PT TAKEN TO ROOM 355A, REPORT GIVEN TO TARAH FLORES. VSS. 1 BAG TO PT ROM ON BEDSIDE TABLE. Addendum: 06/21/21 at 1830 by Deepti Stevenson - MARK FLORES Amended: Links added.
[2021-06-21] MEDS ORDERED: LIDOcaine 2% 10ml TOPICAL JELLY (Urojet) TP ONE (17:50)
[2021-06-21] MEDS ORDERED: naloxone 0.4 mg/ml inj IV PRN ×2 (17:50)
[2021-06-21] MEDS ORDERED: CADD PCA waste documentation MC PRN ×2 (17:50)
[2021-06-21] MEDS ORDERED: morphine/NS 1 mg/ml 50ml CADD 50 ML IV SCH (17:50)
[2021-06-21] MEDS ORDERED: HYDROcodone/acetaminophen 5mg/325mg tablet PO PRN (17:50)
[2021-06-21] MEDS ORDERED: magnesium hydroxide 30ml (MOM) UD suspension PO PRN (17:50)
[2021-06-21] MEDS ORDERED: acetaminophen 325mg tablet PO PRN (17:50)
[2021-06-21] MEDS ORDERED: mag hydrox/Alum hydrox/simeth 30ml oral suspension PO PRN (17:50)
--- NOTE | 2021-06-21 19:02 | NUR ---
Pt arrived to floor during shift change. Report given to Antelmo FLORES. All questions answered. Patient alert, appropriate and pleasant.
[2021-06-21] MEDS: triamcinolone acet 0.1% cream 15gm TP SCH (20:00)
[2021-06-21] MEDS: docusate sod 100mg capsule PO SCH (20:37)
[2021-06-21] MEDS: normal saline 1000ml 1,000 ML IV SCH (20:39)
[2021-06-21] MEDS ORDERED: morphine 4 MG/ML inj SYRINge IV PRN (20:55)
[2021-06-21] MEDS: HYDROcodone/acetaminophen 10/325mg tab PO PRN (22:50)
[2021-06-22] MEDS: normal saline 1000ml 1,000 ML IV SCH ×2 (03:50→13:50)
[2021-06-22 04:56] VITALS: BP 98/63
[2021-06-22 05:09] VITALS: BP 93/60
--- NOTE | 2021-06-22 06:24 | NUR ---
Problems reprioritized. Patient report given, questions answered & plan of care reviewed with MARK Strauss.
[2021-06-22 07:00] VITALS: BP 113/73
[2021-06-22] MEDS: triamcinolone acet 0.1% cream 15gm TP SCH ×2 (08:00→20:18)
--- NOTE | 2021-06-22 08:10 | NUR ---
Noted pt with a low BMI of 10.2 however pt documented as 101". Prior to height change this visit and ht hx in EMR pt 64" resulting in BMI of 25.5. Pt admit with diverticulitis, s/p sigmoid colon resection and placement of bilateral ureteral stents 06/21. Pt previously admitted and seen by RD 02/14 for written and verbal diverticulitis nutrition therapy education with RD contact information provided. Pt currently on a clear liquid diet, recommend diet advancement to low fiber/low residue as medically indicated. Will continue to follow and monitor need for further education this admit. Addendum: 06/22/21 at [address] Amended: Links added.
[2021-06-22] MEDS: pantoprazole 40mg Tablet.DR PO SCH (08:36)
[2021-06-22] MEDS: docusate sod 100mg capsule PO SCH ×2 (08:36→20:17)
[2021-06-22] MEDS: lactobacillus rhamnosus 10,000 MMU CELLS/CAPSULE PO SCH (08:37)
[2021-06-22] MEDS: calcium carbonate 500mg chew tablet PO SCH (08:38)
[2021-06-22 11:00] VITALS: BP 120/69
[2021-06-22] MEDS: ondansetron/PF 4mg/2ml inj IV PRN (11:57)
[2021-06-22] MEDS: HYDROcodone/acetaminophen 10/325mg tab PO PRN (11:57)
[2021-06-22 19:00] VITALS: BP 166/81
[2021-06-22] MEDS ORDERED: enoxaparin 40mg/0.4ml syringe SUBCUT SCH (20:00)
[2021-06-23] VITALS: BP 143/89
[2021-06-23] MEDS: normal saline 1000ml 1,000 ML IV SCH ×2 (01:09→11:16)
--- NOTE | 2021-06-23 06:53 | NUR ---
Patient in room [facility]. I have received report from MARK Salamanca and had the opportunity to ask questions and assume patient care.
[2021-06-23 07:30] VITALS: BP 144/72
[2021-06-23] MEDS: triamcinolone acet 0.1% cream 15gm TP SCH (08:00)
[2021-06-23] MEDS: docusate sod 100mg capsule PO SCH (08:27)
[2021-06-23] MEDS: ondansetron/PF 4mg/2ml inj IV PRN (08:27)
[2021-06-23] MEDS: lactobacillus rhamnosus 10,000 MMU CELLS/CAPSULE PO SCH (08:27)
[2021-06-23] MEDS: pantoprazole 40mg Tablet.DR PO SCH (08:27)
[2021-06-23] MEDS: calcium carbonate 500mg chew tablet PO SCH (08:27)
[2021-06-23] MEDS: HYDROcodone/acetaminophen 10/325mg tab PO PRN ×2 (08:29→13:30)
[2021-06-23 11:00] VITALS: BP 140/77
--- NOTE | 2021-06-23 14:00 | NUR ---
Pt discharged to home with all belongings, in private vehicle, accompanied by . Discharge instructions and medications reviewed, no new prescriptions ordered. Pt instructed to follow up with Dr Das on of next week, and to notify his office with any concerns of infection. Pt stated understanding and willingness to comply with all discharge instructions. IV Dc'd, cannula intact. Pt escorted to front lobby via wheelchair by primary RN.
== END 2021-06-23 14:04 | disposition home or self-care (01) | DRG 331 ==
LOC: PAS IN 06-21 09:34 → UNDOADMIN 06-21 09:34 → PAS IN 06-21 18:04 → SUR 3N 06-21 18:15 → PAS IN 06-21 18:15 → SUR 3N 06-21 20:32
PROVIDERS: ADMIT Surgery; ATTEND Surgery
PROC: 3E0T3BZ Introduction of Anesthetic Agent into Peripheral Nerves and Plexi, Percutaneous Approach (ICD-10-PCS; 2021-06-21)
PROC: 3E0T33Z Introduction of Anti-inflammatory into Peripheral Nerves and Plexi, Percutaneous Approach (ICD-10-PCS; 2021-06-21)
PROC: 0DTN0ZZ Resection of Sigmoid Colon, Open Approach (ICD-10-PCS; principal; 2021-06-21 12:40)
PROC: 0T788DZ Dilation of Bilateral Ureters with Intraluminal Device, Via Natural or Artificial Opening Endoscopic (ICD-10-PCS; 2021-06-21 12:40)
DX: K57.92 Diverticulitis of intestine, part unspecified, without perforation or abscess without bleeding (principal); Z90.710 Acquired absence of both cervix and uterus; Z88.0 Allergy status to penicillin; Z88.2 Allergy status to sulfonamides; Z88.8 Allergy status to other drugs, medicaments and biological substances; Z79.899 Other long term (current) drug therapy
CPT/HCPCS: Z7506; Z7508; 36415; 76000; 80053; 81001; 82948; 85025; 86885; 86900; 86901; 86920; 87081; 87088; 93005; A4215; A4618; A7000; C1758; C1769; C9290; G0378; J0694; J1100; J1650; J2001; J2250; J2270; J2370; J2405; J2704; J2710; J3010; J3490; J7030; J7120; U0003; U0005